=== PATIENT | male | born 1970 | race Caucasian/White ===

== ENCOUNTER 2020-01-01 11:29 | Emergency (ER) | payer SELFPAY ==
[~2020-01-01] VITALS: Ht 175.3 cm; Wt 77.1 kg
[2020-01-01 11:35] VITALS: BP 130/85
--- NOTE | 2020-01-01 11:35 | NUR ---
ED Nurse Note: PT brought in by [employer] for medical clearance. pt is C/O pain to bilateral wrist area from being hadcuffed.
--- NOTE | 2020-01-01 11:51 | NUR ---
ED Nurse Note: Report given to MADELAINE Mike. endorsed plan of care.
[2020-01-01] MEDS ORDERED: Ketorolac 60mg Inj IM ONE (12:00)
--- NOTE | 2020-01-01 12:04 | NUR ---
ED Nurse Note:pain meds given
--- NOTE | 2020-01-01 13:07 | Emergency Room Report ---
History of Present Illness General Chief Complaint: Medical Clearance Source: Patient Present Illness HPI This patient presents in the custody of [place] police department. He was arrested yesterday and is in custody. The patient is here for clearance for incarceration. The patient states that yesterday he jumped off a roof and injured his right hand and wrist. The military police officer reports that he refused evaluation last night. This morning he was complaining of right hand and wrist pain and now agrees to evaluation. He has no other injuries. He states he has had a wound on his right lower leg that has not fully resolved. This is a chronic wound. He has no other complaints. Allergies: Coded Allergies: No Known Allergies (Unverified , 01/01/20) COVID-19 Screening Contact w/high risk pt: No Recent Travel to affected area: No Experienced COVID-19 symptoms?: No COVID-19 Testing performed PRODUCT STRATEGY DIRECTOR: No Patient History Past Medical History: see triage record, HIV Social History: Reports: drug use; Denies: smoking, alcohol use Reviewed Nursing Documentation: PMH: Agreed; PSxH: Agreed Review of Systems All Other Systems: negative except mentioned in HPI Physical Exam Vital Signs Date Time Temp Pulse Resp B/P (MAP) Pulse Ox O2 Delivery O2 Flow Rate FiO2 01/01/20 11:31 97.7 89 19 130/85 (100) 99 Room Air Sp02 EP Interpretation: reviewed, normal General Appearance: no apparent distress, alert, GCS 15, non-toxic Head: normocephalic, atraumatic Eyes: bilateral eye normal inspection ENT: hearing grossly normal, normal pharynx, no angioedema, normal voice Neck: full range of motion, supple/symm/no masses Respiratory: no respiratory distress, no retraction, no accessory muscle use, speaking full sentences Gastrointestinal: normal bowel sounds, non tender, soft, non-distended, no guarding, no rebound Rectal: deferred Musculoskeletal: back normal, normal range of motion, gait/station normal, other - R. posterior hand with swelling and +bony deformity. Neurologic: alert, motor strength/tone normal, oriented x3, sensory intact, responsive, speech normal Psychiatric: judgement/insight normal, memory normal, mood/affect normal, no suicidal/homicidal ideation Medical Decision Making Diagnostic Impression: Primary Impression: Distal radius fracture, right Additional Impression: Medical clearance for incarceration ER Course This patient has a distal radius fracture that is comminuted and involves the articular surface. This patient will likely need open reduction internal fixation. Further discussion with [place] police department and they state that he can be seen at [facility] and just need to be cleared for booking. He can undergo surgery as he will arrive immediately to [facility] and can get surgery at [facility]. They request that he has this surgery there. The patient will need immediate evaluation by an senior publications specialist. The patient was placed in a sugar tong splint and given a sling and cleared for booking. Other X-Ray Diagnostic Results Other X-Ray Diagnostic Results : X-Ray ordered: R. wrist xray # of Views/Limited Vs Complete: Complete Indication: Pain EP Interpretation: Yes Interpretation: other - Distal radiux fx. Comminuted w/ intra-articular component. Impression: Other - See above. Electronically Signed by: Rosemarie Lim DO Last Vital Signs Date Time Temp Pulse Resp B/P (MAP) Pulse Ox O2 Delivery O2 Flow Rate FiO2 01/01/20 12:27 97.7 01/01/20 11:35 89 19 Room Air 01/01/20 11:35 130/85 99 Disposition: LAW ENFORCEMENT IN CUST Condition: Stable Referrals: NOT CHOSEN IPA/,REFERRING (PCP) Rosemarie Lim DO January 01, 2020 13:07
--- NOTE | 2020-01-01 13:50 | Diagnostic Imaging Report ---
EXAM: X-RAY XRAY Hand Complete R CLINICAL HISTORY: Trauma with hand pain. COMPARISON: None FINDINGS: Total of 3 views of the right hand were obtained. Alignment is anatomic. There is fracture of the distal radius. Bony appendages of the hand appear intact. Joint spaces are unremarkable. Surrounding soft tissue is normal. IMPRESSION: DISTAL RADIAL FRACTURE.
--- NOTE | 2020-01-01 13:51 | Diagnostic Imaging Report ---
EXAM: X-RAY XRAY Wrist Complete R CLINICAL HISTORY: Trauma with wrist pain. COMPARISON: None FINDINGS: Total of 3 views of the right wrist were obtained. There is a distal radial fracture with mild impaction. There is extension to the articular margin. The other bony appendages otherwise intact. Joint spaces are unremarkable. Soft tissue swelling noted. IMPRESSION: DISTAL RADIAL FRACTURE WITH INTRA-ARTICULAR EXTENSION.
[2020-01-01 14:25] VITALS: BP 130/85
--- NOTE | 2020-01-01 14:25 | NUR ---
ER DISCHARGE NOTE:splint was placed on right wrist by prior authorization technician Patient is cleared to be discharged per ERMD, pt is aox4, on room air, with stable vital signs. pt was given dc instructions and snf clearance note, pt was able to verbalize understanding, pt is able to ambulate with steady gait. pt took all belongings, taken in custody by [employer]
--- NOTE | 2020-01-01 14:34 | Diagnostic Imaging Report ---
Indication: Arm pain status post injury Technique: XRAY Forearm 2v R Comparison: Correlation made to concurrent hand and wrist radiograph FINDINGS/IMPRESSION: Bony mineralization within normal limits. Impacted, intra-articular fracture of the distal radius is again noted, as described on concurrent wrist radiographs. No additional fracture is identified more proximally in the forearm. Elbow joint appears maintained. No appreciable elbow joint effusion. No radiopaque foreign body.
== END 2020-01-01 14:25 ==
LOC: EMR 12:00
DX: Z02.89 Encounter for other administrative examinations (principal); S52.501A Unspecified fracture of the lower end of right radius, initial encounter for closed fracture; B20 Human immunodeficiency virus [HIV] disease; W17.89XA Other fall from one level to another, initial encounter; Y93.9 Activity, unspecified; Y92.9 Unspecified place or not applicable
CPT/HCPCS: 96372; 99284